=== PATIENT | female | born 1970 | race Caucasian/White ===

== ENCOUNTER 2016-09-04 21:35 | Inpatient (IN) ==
[2016-09-04] MEDS ORDERED: KETOROLAC 30 MG/1 ML VIAL IV STA (22:52)
[2016-09-04] MEDS ORDERED: ALBUTEROL/IPRATROPIUM 3 ML NEB RESP TX STA (22:52)
[2016-09-04] MEDS ORDERED: CEFTAROLINE 600 MG in SODIUM CHLORIDE 0.9% 100 ML IV STA (22:52)
[2016-09-04] MEDS ORDERED: methylPREDNISolone SOD SUC 125 MG/2 ML VIAL IV STA (22:52)
[2016-09-04] MEDS ORDERED: VANCOMYCIN INJ 1,000 MG in SODIUM CHLORIDE 0.9% 250 ML IV STA (22:52)
[2016-09-04 22:54] LABS: Basophils % 0.2 % (0.0-0.8); Eosinophils # 0.5 10*3/uL (0.0-0.87); Eosinophils % 3.7 % (0.00-10.9); Hematocrit 37.6 VOL% (35.7-47.0); Hemoglobin 12.8 GM/DL (12.0-16.0); Immature Granulocytes % 0.5 %; Immature Granulocytes Absolute 0.06 #; Lymphocytes # 2.6 10*3/uL (1.4-4.0); Mean Corpuscular Hemoglobin 32 PG (27-34); Mean Corpuscular Volume 94.9 FL (87-102); Mean Platelet Volume 10.8 FL (9.6-12.0); Monocytes % 7.7 % (1.7-12.7); Neutrophils # 8.2 10*3/uL (1.4-7.4); Neutrophils % 66.9 % (38.7-73.9); Platelet Count 209 T/CUMM (130-400); Red Blood Count 3.96 MC/CUMM (3.8-5.5); Red Cell Distribution Width 12.2 % (9.3-17.3); White Blood Count 12.3 T/CUMM (4-12)
[2016-09-04 23:15] LABS: Alanine Aminotransferase 20 U/L (13-56); Alkaline Phosphatase 79 U/L (45-117); Aspartate Amino Transferase 12 U/L (0-37); Bilirubin,Total < 0.39 MG/DL (0.2-1.0); Blood Urea Nitrogen 18 MG/DL (7-18); Calcium 8.9 MG/DL (8.5-10.1); Glucose 103 MG/DL (74-106); Magnesium 1.8 MG/DL (1.8-2.4); Osmolality,Calculated 280.4 MOS/KG (273-304); Potassium 4.5 MMOL/L (3.5-5.1); Sodium 140 MMOL/L (136-145); Total Protein 6.3 G/DL (6.4-8.3)
--- NOTE | 2016-09-04 23:32 | Emergency Department Note ---
IRonnie Emily, am scribing for, and in the presence of, Cordell Abbasi MD 23: 00. Elroy Alejandro Charles R, MD, personally performed the services described in this documentation, ascribed by Parris Trujillo in my presence, and it is both accurate and complete 332 . Arrival - Arrival Chief Complaint: Extremity Problem Stated Complaint: LAC TO WRIST ED Nursing Triage Note: pt states she was here friday and diagnosed with an infection to left forearm. pt states it has gotten worse and hurts very bad Mode of Arrival: Wheelchair Limitations: No Limitations Source: Patient Time Seen by Provider: 09/04/16 22:00 - History of Present Illness HPI Narrative: Pt is a 45 y/o female who came to ED with c/o laceration that turned to abscess on left forearm that has been ongoing prior to Friday. Pt reports being seen in ED on Friday for same sx with IV abx in ED and sent home with prescription but has not taken them. Pt notes her arm is painful to touch and has worsened. She states the abscess is not draining. Pt reports smoking but denies DM. Onset (ago): day(s) Consistency: constant Severity: moderate Severity scale (1-10): 6 Quality: aching Allergies/Adverse Reactions: Allergies Allergy/AdvReac Type Severity Reaction Status Date / Time pseudoephedrine Allergy RASH Verified 09/02/16 15:56 [From [facility]] Home Medications: Home Medications Medication Instructions Recorded Confirmed Type Albuterol Neb [Proventil Neb] 2.5 mg RESP TX Q8H PRN 02/01/15 09/02/16 History Budesonide/Formoterol 160-4.5 2 puff INH BID 02/01/15 09/02/16 History [Symbicort 160-4.5] Gabapentin Cap/Tab [Neurontin 600 mg PO TID 02/01/15 09/02/16 History Cap/Tab] HYDROcodone/ACETAMIN 10-325 [[place] 1 tablet PO BID 02/01/15 09/02/16 History 10-325] tiZANidine [Zanaflex] 4 mg PO QID 02/01/15 09/02/16 History Ketorolac Tab [Toradol Tab] 10 mg PO Q8H #14 tablet 05/15/17 Rx Levofloxacin Tab [Levaquin Tab] 500 mg PO Q24H #7 tablet 09/02/16 Rx Review of System - Review of System 12 point system: reviewed and no additional remarkable complaints except as stated - Review of System Constitutional: Absent: fever Respiratory: Absent: respiratory distress Cardiovascular: Absent: chest pain, palpitations Gastrointestinal: Absent: abdominal pain, nausea, vomiting Musculoskeletal: Absent: arm pain, back pain, leg pain, neck pain Skin: Present: lesions (left wrist abscess; painful to touch; red and swollen). Absent: rash Neurological: Absent: headache Medical,Surgical,& Family Hx - Medical History Respiratory: History of: Asthma Musculoskeletal: History of: Musculoskeletal Problems (chronic pain) - Surgical History Surgical History: noncontributory - Family History Family History: noncontributory - Social History Smoking Status: Current every day smoker Frequency of Alcohol Use: None Type of Drug Use: None Functional capacity: independent ambulation Exam Vital Signs: Vital Signs Temperature 97.4 F L 09/04/16 21:58 Pulse Rate 107 H 09/04/16 21:58 Respiratory Rate 20 09/04/16 21:58 Blood Pressure 136/96 09/04/16 21:58 O2 Sat by Pulse Oximetry 93 L 09/04/16 21:36 - General General appearance: alert, in no apparent distress - Head Head exam: Present: atraumatic, normocephalic - Eye Eye exam: Present: PERRL, EOMI - ENT ENT exam: Present: mucous membranes moist. Absent: mucous membranes dry - Neck Neck exam: Present: full ROM. Absent: tenderness - Chest Chest inspection: Present: symmetric chest wall rise. Absent: tenderness - Respiratory Respiratory exam: Present: normal lung sounds bilaterally. Absent: respiratory distress - Cardiovascular Cardiovascular exam: Present: regular rate, normal rhythm, normal heart sounds - Extremities Exam Extremities exam: Present: full ROM. Absent: tenderness, pedal edema - Neurological Exam Neurological exam: Present: alert, oriented X3, CN II-XII intact. Absent: motor sensory deficit - Psychiatric Psychiatric exam: Present: normal affect, normal mood - Skin Skin exam: Present: warm, dry, other (8x6 cm abscess to left forearm that's erythematic, tender & hot to the touch and swollen; good radial pulse) Course - Consultations Consultation #1: Dr. Hernandez will admit patient Time: 23:32 Results - Labs CBC & BMP: 09/04/16 22:40 09/04/16 22:40 Lab Results: I have reviewed the patients labs Labs: Laboratory Tests 09/04/16 22:40 WBC 12.3 H Lymph % (Auto) 21.0 L Neut # (Auto) 8.2 H [place] # (Auto) 1.0 H Disposition Clinical Impression: Cellulitis of left forearm, Abscess of left forearm Case discussed with: patient Disposition: Still a Patient Condition: Stable Time of Disposition: 23:32
[2016-09-04] MEDS ORDERED: methylPREDNISolone SOD SUC 125 MG/2 ML VIAL ONE (23:34)
[2016-09-04] MEDS ORDERED: KETOROLAC 30 MG/1 ML VIAL ONE (23:34)
[2016-09-04] MEDS ORDERED: CEFTAROLINE 600 MG VIAL IV ONE (23:35)
[2016-09-04] MEDS ORDERED: SODIUM CHLORIDE 0.9% 100 ML IV ONE (23:35)
[2016-09-05] MEDS ORDERED: VANCOMYCIN 1,000 MG VIAL ONE (00:43)
[2016-09-05] MEDS ORDERED: ACETAMINOPHEN 325 MG TABLET PO PRN (01:17)
[2016-09-05] MEDS ORDERED: ONDANSETRON 4 MG/2 ML VIAL IV PRN ×2 (01:17→10:31)
[2016-09-05] MEDS ORDERED: ALBUTEROL/IPRATROPIUM 3 ML NEB RESP TX PRN (01:17)
[2016-09-05] MEDS: HYDROmorphone 2 MG/1 ML VIAL IV PRN ×8 (02:02→23:13)
[2016-09-05] MEDS: PIPERACILLIN/TAZOBACTAM 3,375 MG in SODIUM CHLORIDE 0.9% 100 ML IV SCH ×3 (02:35→18:07)
[2016-09-05] MEDS: SODIUM CHLORIDE 0.9% 1,000 ML IV SCH ×3 (02:35→17:24)
--- NOTE | 2016-09-05 06:45 | XRay Report ---
Exam: XR chest 1V portable Date: 09/04/2016 10:52 PM Indication: Respiratory preop evaluation of the chest Comparison: 09/03/2015 Findings: Partially calcified nodular densities measuring approximately 9 to 10 mm in the left chest x2 and left perihilar region. Degenerative change present thoracic spine. No obvious infiltrate or effusion. Bony structures reveal no acute findings. Heart is normal in size. Impression: 1. Granuloma changes left midlung zone and perihilar regions without acute pathology. PROCEDURE INTERPRETED AT [facility] ([facility] DEPARTMENT OF RADIOLOGY Final Report Signed by: Dr. Christopher Rivera
[2016-09-05 07:33] LABS: Basophils % 0.1 % (0.0-0.8); Hematocrit 37.7 VOL% (35.7-47.0); Hemoglobin 13.1 GM/DL (12.0-16.0); Immature Granulocytes % 0.5 %; Immature Granulocytes Absolute 0.05 #; Lymphocytes # 0.6 10*3/uL (1.4-4.0); Lymphocytes % 5.9 % (21.3-54.2); Mean Corpuscular HGB Conc 34.7 GM/DL (32-36); Mean Corpuscular Hemoglobin 33 PG (27-34); Mean Corpuscular Volume 95.2 FL (87-102); Mean Platelet Volume 10.8 FL (9.6-12.0); Monocytes # 0.2 10*3/uL (0.11-0.8); Monocytes % 1.7 % (1.7-12.7); Neutrophils # 9.7 10*3/uL (1.4-7.4); Neutrophils % 91.8 % (38.7-73.9); Platelet Count 185 T/CUMM (130-400); Red Blood Count 3.96 MC/CUMM (3.8-5.5); Red Cell Distribution Width 12.1 % (9.3-17.3); White Blood Count 10.6 T/CUMM (4-12)
[2016-09-05 07:52] LABS: Hypochromasia 1+; Lymphocytes 5 % (20-55); Platelet Estimate Normal; Segmented Neutrophils 92 % (50-85); Total Cells Counted 100
--- NOTE | 2016-09-05 07:57 | General Surg History&Physical ---
Assessment and Plan - Time spent with patient Time spent with patient: Greater than 30 minutes (1) Abscess of left forearm Status: Acute Assessment and plan: This is an infected left forearm puncture wound. This has purulence and abscess formation and necrotic tissue. This will need debridement under general anesthesia. She did have an x-ray of her forearm 2 days ago in the emergency department which did not show a foreign body. She is on appropriate antibiotics and her white blood cell count is already coming down. I discussed the procedure and risks in detail and she wishes to proceed today. Current Visit: Yes History of Present Illness Chief complaint: Infection left arm History of present illness: Ms. Harrison is a 45 year old female Who states that she fell in a dark trailer a week ago and something punctured her left arm. She does not know what it is. She states that she pulled it out in the dark and that it was metal. She came to the emergency room several days ago and was treated with antibiotics as an outpatient. She has had increased pain and redness and subjective fever since that time. It is more painful when she moves her arm. It feels better if her arm is elevated. Home Medications Medication Instructions Recorded Confirmed Type Albuterol Neb [Proventil Neb] 2.5 mg RESP TX Q8H PRN 02/01/15 09/05/16 History Budesonide/Formoterol 160-4.5 2 puff INH BID 02/01/15 09/05/16 History [Symbicort 160-4.5] Gabapentin Cap/Tab [Neurontin 900 mg PO TID 02/01/15 09/05/16 History Cap/Tab] tiZANidine [Zanaflex] 4 mg PO QID 02/01/15 09/05/16 History Oxycodone HCl/Acetaminophen 1 each PO TID 09/05/16 09/05/16 History [Percocet 10-325 mg Tablet] Allergies Allergy/AdvReac Type Severity Reaction Status Date / Time pseudoephedrine Allergy RASH Verified 09/02/16 15:56 [From [facility]] Medical,Surgical,& Family Hx - Medical History Respiratory: History of: Asthma, COPD Genitourinary: History of: Kidney Stones Musculoskeletal: History of: Back/Neck Problems (broke neck and back in 3 places ), Musculoskeletal Problems (chronic pain) - Surgical History Orthopedic Surgeries: Surgical HX of;: Orthopedic Surgery (pelvic and left leg surgery x 2), Spinal Surgery - Family History Family History: Reports;: Family Diabetes, Family Heart Disease, Family Hypertension, Additional Family History (father had pneumonia and emphysema) - Social History Smoking Status: Current every day smoker Frequency of Alcohol Use: None Type of Drug Use: None Exam - Constitutional Vitals: Period Temp Pulse Resp BP Sys/Edwards Pulse Ox Last 24 Hr 97.6 F-98.1 F 82-87 18-20 124-126/70-82 91-97 General appearance: no acute distress - Head Head exam: Present: normocephalic - Eye Eye exam: Absent: scleral icterus - ENT Mouth exam: Present: normal voice - Neck Neck exam: Present: trachea midline - Respiratory Respiratory exam: Present: clear to auscultation bilaterally. Absent: accessory muscle use - Cardiovascular Cardiovascular exam: Present: RRR - GI/Abdominal GI/Abdominal exam: Present: soft. Absent: distended, tenderness - Extremities Exam Extremities exam: Present: other (There is about a 5 cm area of erythema along the volar surface of her forearm. It is over the mid forearm. There is a central area of bullous change with purulence beneath it. She has normal movement of her hand and fingers). Absent: edema - Neurological Exam Neurological exam: Present: alert, oriented X3. Absent: motor sensory deficit Speech: Present: normal - Skin Skin exam: Present: normal color - Constitutional Constitutional: Present: chills, fever(s) - Cardiovascular Cardiovascular: Present: dyspnea on exertion. Absent: chest pain at rest, chest pain with activity, dyspnea, syncope - Respiratory Respiratory: Present: dyspnea. Absent: cough, hemoptysis - Gastrointestinal Gastrointestinal: Absent: abdominal pain - Genitourinary Genitourinary: Absent: hematuria - Musculoskeletal Musculoskeletal: Present: back pain - Neurological Neurological: Absent: focal weakness, syncope - Endocrine Endocrine: Absent: polyuria Hematologic/Lymphatic: Absent: easy bleeding, easy bruising Results - Labs CBC & BMP: 09/05/16 07:25 09/04/16 22:40 Lab Results: I have reviewed the past 24 hour labs - Diagnostic Findings Procedure: X-ray: report reviewed by me
[2016-09-05 08:07] LABS: Alanine Aminotransferase 21 U/L (13-56); Alkaline Phosphatase 87 U/L (45-117); Aspartate Amino Transferase 13 U/L (0-37); Bilirubin,Total < 0.39 MG/DL (0.2-1.0); Blood Urea Nitrogen 20 MG/DL (7-18); Calcium 9.3 MG/DL (8.5-10.1); Glucose 169 MG/DL (74-106); Osmolality,Calculated 287.3 MOS/KG (273-304); Potassium 4.4 MMOL/L (3.5-5.1); Sodium 141 MMOL/L (136-145); Total Protein 6.5 G/DL (6.4-8.3)
--- NOTE | 2016-09-05 08:15 | EKG Report ---
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
[2016-09-05] MEDS: PANTOPRAZOLE 40 MG TABLET PO SCH (08:33)
[2016-09-05] MEDS: ENOXAPARIN 40 MG/0.4 ML SYRINGE SUBCUT SCH (08:33)
[2016-09-05] MEDS ORDERED: LIDOCAINE 1%/EPI INJ 20 ML VIAL ONE (08:42)
[2016-09-05] MEDS ORDERED: BUPIVACAINE MPF 0.25% /EPI 30 ML VIAL ONE (08:42)
[2016-09-05] MEDS ORDERED: ONDANSETRON 4 MG/2 ML VIAL ONE ×2 (09:21→10:13)
[2016-09-05] MEDS ORDERED: LIDOCAINE 2% 5 ML VIAL ONE (09:21)
[2016-09-05] MEDS ORDERED: PROPOFOL 200 MG/20 ML VIAL IV ONE (09:21)
--- NOTE | 2016-09-05 10:04 | Operative Note ---
Date of procedure: 09/05/16 Pre-op diagnosis: Necrotizing soft tissue infection left forearm Post-op diagnosis: same Procedure: Excisional debridement of skin and subcutaneous tissue left forearm 4 x 5 cm Findings and technique: After informed consent was obtained the patient was brought the operating room and placed in supine position. After successful induction of general anesthesia the patient's left upper extremity was prepped and draped in usual sterile fashion. The patient had a bullous change of the skin which was draining purulent fluid. This pus was cultured. The skin was debrided away partial-thickness. There was a central area of full-thickness necrosis which communicated with necrotic subcutaneous tissue beneath the skin. I debrided away about 1 x 2 cm of necrotic skin and unroofed the necrotic subcutaneous tissue which was debrided from a space undermined beneath the skin 4 x 5 cm. The remaining tissue appeared viable. This was copiously irrigated and packed open with iodoform gauze. Anesthesia: GETA Surgeon / Physician: Joseluis Hernandez III. Estimated blood loss: minimal Specimens: other (Cultures) Condition: stable Disposition: PACU Results - Labs CBC & BMP: 09/05/16 07:25 09/05/16 07:25 Discharge Plan - Discharge Medications No Action Albuterol Neb [Proventil Neb] 2.5 mg RESP TX Q8H PRN PRN Reason: Shortness Of Breath/Wheezing tiZANidine [Zanaflex] 4 mg PO QID Gabapentin Cap/Tab [Neurontin Cap/Tab] 900 mg PO TID Budesonide/Formoterol 160-4.5 [Symbicort 160-4.5] 2 puff INH BID Oxycodone HCl/Acetaminophen [Percocet 10-325 mg Tablet] 1 each PO TID - Follow Up or Referral - Forms/Instructions
--- NOTE | 2016-09-05 10:08 | Anesthesia Post-Op ---
Anesthesia Post OP - Post Ansesthetic Evaluation Patient seen in post op: Yes Resp: within normal limits CV: within normal limits Mental: within normal limits Temp: within normal limits Ldft-Cy-Ibemlhgmb: within normal limits Nausea and Vomiting: within normal limits Pain: within normal limits
[2016-09-05] MEDS ORDERED: HYDROmorphone 2 MG/1 ML VIAL ONE ×2 (10:12→10:13)
[2016-09-05] MEDS ORDERED: fentaNYL 100 MCG/2 ML VIAL ONE (10:13)
[2016-09-05] MEDS ORDERED: MIDAZOLAM 2 MG/2 ML VIAL ONE ×2 (10:13→11:15)
--- NOTE | 2016-09-05 12:02 | Event Note ---
P/o Check s/p excisional debridement of left forearm for necrotic soft tissue infection. Pt denies chest pain, SOB, wheeze, cough, abdominal pain, N/V. Has not eaten but has appetite - tray arriving at bedside. Pt reports poor control of pain - requesting home med. 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 Ortiz. VSS HEENT: atraumatic Heart: RRR Lungs: CTAB Abd: soft/NTND +BS Lower Ext: SCD in place. Calves soft and nontender without pedal edema. Left forearm: surgical dressing in place - c/d/i. mild edema of hand and distal forearm. AIN, PIN and ulnar motor function intact. Pt reports diminished sensation over all digits. Radial pulse 2+ with BCR digits. A/P Stable p/o. Will change oral pain medication to oxycodone. Encouraged elevation of LUE and digit ROM. Encouraged IS. Diet as tolerated. Continue vanc and zosyn. F/u culture results. DVT ppx: SCD. Lovenox GI ppx: PPI daily.
[2016-09-05] MEDS: tiZANidine 4 MG TABLET PO SCH ×3 (12:45→20:37)
[2016-09-05] MEDS: oxyCODONE/ACETAMINOPHEN 5-325 MG TABLET PO PRN ×3 (13:12→20:37)
[2016-09-05] MEDS: GABAPENTIN 300 MG CAPSULE PO SCH ×2 (15:09→20:37)
[2016-09-05] MEDS: VANCOMYCIN INJ 1,000 MG in SODIUM CHLORIDE 0.9% 250 ML IV SCH (15:33)
[2016-09-05] MEDS: NICOTINE 21 MG/24 HR PATCH TRANSDERM SCH (17:20)
[2016-09-05] MEDS: BUDESONIDE/FORMOTEROL 160-4.5 INHALER 6 GM INH SCH ×2 (23:12→23:13)
[2016-09-06] MEDS: SODIUM CHLORIDE 0.9% 1,000 ML IV SCH ×3 (00:16→23:46)
[2016-09-06] MEDS: VANCOMYCIN INJ 1,000 MG in SODIUM CHLORIDE 0.9% 250 ML IV SCH ×3 (00:28→23:45)
[2016-09-06] MEDS: oxyCODONE/ACETAMINOPHEN 5-325 MG TABLET PO PRN ×5 (00:28→22:54)
[2016-09-06] MEDS: PIPERACILLIN/TAZOBACTAM 3,375 MG in SODIUM CHLORIDE 0.9% 100 ML IV SCH ×3 (02:30→17:12)
[2016-09-06] MEDS: HYDROmorphone 2 MG/1 ML VIAL IV PRN ×3 (07:22→20:49)
[2016-09-06 07:41] LABS: Basophils % 0.3 % (0.0-0.8); Eosinophils # 0.2 10*3/uL (0.0-0.87); Eosinophils % 1.5 % (0.00-10.9); Hematocrit 33.7 VOL% (35.7-47.0); Hemoglobin 11.3 GM/DL (12.0-16.0); Immature Granulocytes % 0.6 %; Immature Granulocytes Absolute 0.07 #; Lymphocytes # 2.7 10*3/uL (1.4-4.0); Mean Corpuscular HGB Conc 33.5 GM/DL (32-36); Mean Corpuscular Hemoglobin 33 PG (27-34); Mean Corpuscular Volume 97.4 FL (87-102); Mean Platelet Volume 11.1 FL (9.6-12.0); Monocytes # 0.9 10*3/uL (0.11-0.8); Monocytes % 7.5 % (1.7-12.7); Neutrophils # 7.8 10*3/uL (1.4-7.4); Neutrophils % 67.1 % (38.7-73.9); Platelet Count 216 T/CUMM (130-400); Red Blood Count 3.46 MC/CUMM (3.8-5.5); Red Cell Distribution Width 12.8 % (9.3-17.3); White Blood Count 11.6 T/CUMM (4-12)
[2016-09-06 08:00] LABS: Calcium 8.4 MG/DL (8.5-10.1); Osmolality,Calculated 288.7 MOS/KG (273-304); Potassium 4.1 MMOL/L (3.5-5.1)
[2016-09-06] MEDS: PANTOPRAZOLE 40 MG TABLET PO SCH (09:09)
[2016-09-06] MEDS: GABAPENTIN 300 MG CAPSULE PO SCH ×3 (09:09→20:49)
[2016-09-06] MEDS: tiZANidine 4 MG TABLET PO SCH ×4 (09:09→20:49)
[2016-09-06] MEDS: ENOXAPARIN 40 MG/0.4 ML SYRINGE SUBCUT SCH (09:09)
[2016-09-06] MEDS: NICOTINE 21 MG/24 HR PATCH TRANSDERM SCH (09:10)
[2016-09-06] MEDS: BUDESONIDE/FORMOTEROL 160-4.5 INHALER 6 GM INH SCH ×2 (09:14→20:49)
--- NOTE | 2016-09-06 10:08 | Event Note ---
General Surgery Progress Note Chief complaint This patient is a 45-year-old woman admitted with necrotizing infection of her left forearm treated by Dr. Hernandez with excisional debridement of necrotizing soft tissue infection on 09/05/2016 Interval history The patient is complaining of a lot of pain and has been a little bit aggressive with the nurses. She has no fevers. Her labs look good today with normal white blood cell count. Physical exam The patient is afebrile with normal vital signs Her left forearm wound still has some significant erythematous blanching extending several centimeters in each direction around her wound but there is no purulence in the wound. There is no further necrotic tissue. The packing was taken out completely. The wound is very tender during the dressing change. Labs Reviewed, as above Imaging None Assessment and plan Continue wound care and antibiotics. We will wait to see resolution of little bit more of the patient's erythema prior to discharging her home and transitioning her to oral antibiotics. Continue pain control
[2016-09-07] MEDS: HYDROmorphone 2 MG/1 ML VIAL IV PRN ×4 (00:59→20:33)
[2016-09-07] MEDS: PIPERACILLIN/TAZOBACTAM 3,375 MG in SODIUM CHLORIDE 0.9% 100 ML IV SCH ×3 (02:20→18:54)
[2016-09-07] MEDS: oxyCODONE/ACETAMINOPHEN 5-325 MG TABLET PO PRN ×3 (06:21→16:32)
[2016-09-07] MEDS: SODIUM CHLORIDE 0.9% 1,000 ML IV SCH (08:42)
[2016-09-07] MEDS: GABAPENTIN 300 MG CAPSULE PO SCH ×3 (08:44→20:33)
[2016-09-07] MEDS: tiZANidine 4 MG TABLET PO SCH ×4 (08:45→20:34)
[2016-09-07] MEDS: PANTOPRAZOLE 40 MG TABLET PO SCH (08:45)
[2016-09-07] MEDS: NICOTINE 21 MG/24 HR PATCH TRANSDERM SCH (08:45)
[2016-09-07] MEDS: ENOXAPARIN 40 MG/0.4 ML SYRINGE SUBCUT SCH (08:45)
[2016-09-07] MEDS: BUDESONIDE/FORMOTEROL 160-4.5 INHALER 6 GM INH SCH ×2 (08:50→20:34)
--- NOTE | 2016-09-07 11:08 | Event Note ---
General Surgery Progress Note Chief complaint This patient is a 45-year-old woman admitted with necrotizing infection of her left forearm treated by Dr. Hernandez with excisional debridement of necrotizing soft tissue infection on 09/05/2016 Interval history No events overnight. Patient is still having issues with pain control. No fevers. Physical exam The patient is afebrile with normal vital signs Left forearm wound has decreased erythema. There is no purulent drainage or necrotic tissue. The wound was dressed today. Labs Reviewed, as above Imaging None Assessment and plan Continue wound care and antibiotics. Hopefully culture reports will come back today and we can discharge the patient on p.o. antibiotics. Otherwise, she should be ready for discharge tomorrow.
[2016-09-07] MEDS: VANCOMYCIN INJ 1,000 MG in SODIUM CHLORIDE 0.9% 250 ML IV SCH (15:20)
[2016-09-08] MEDS: VANCOMYCIN INJ 1,000 MG in SODIUM CHLORIDE 0.9% 250 ML IV SCH (00:38)
[2016-09-08] MEDS: PIPERACILLIN/TAZOBACTAM 3,375 MG in SODIUM CHLORIDE 0.9% 100 ML IV SCH ×2 (02:54→11:51)
[2016-09-08] MEDS: oxyCODONE/ACETAMINOPHEN 5-325 MG TABLET PO PRN (06:21)
--- NOTE | 2016-09-08 09:00 | Discharge Summary ---
Hospital Course - Hospital Course Hospital Course: The patient was admitted for a wound on her left forearm. This responded to debridement and antibiotics with wound care. She was discharged home with gram- positive cocci growing out of her wound and she was discharged on a prescription of Bactrim for 10 days. She was given wound care instructions of pain medicine. She is a chronic pain patient has a contract with someone in [place] so she will call them tomorrow to see what to do about her pain contract. Specialty Discharge - Follow Up or Referrals Discharge Plan - Discharge Data Disposition: Disch To Home/Self Care Condition at Discharge: Stable Discharge Diet: advance to your usual diet Activity: resume usual activities as tolerated Hygiene: may shower Weight Bearing at Discharge: full weight bearing Driving: not until seen by doctor Contact your physician if you experience:: fever over 101, Difficulty voiding, Redness or swelling, Nausea/Vomiting, Shortness of breath, Bleeding, pain uncontrolled by pain medications Wound / Dressing Care Instructions: Clean wound once daily and packed with iodoform gauze and cover with gauze dressing and Kerlix. - Discharge Medications New oxyCODONE/ACETAMINOPHEN 5-325 [Percocet 5-325] 1 tablet PO Q4H PRN #10 tablet PRN Reason: Pain Moderate To Severe (4-10) Continue Albuterol Neb [Proventil Neb] 2.5 mg RESP TX Q8H PRN PRN Reason: Shortness Of Breath/Wheezing tiZANidine [Zanaflex] 4 mg PO QID Gabapentin Cap/Tab [Neurontin Cap/Tab] 900 mg PO TID Budesonide/Formoterol 160-4.5 [Symbicort 160-4.5] 2 puff INH BID Oxycodone HCl/Acetaminophen [Percocet 10-325 mg Tablet] 1 each PO TID - Follow Up or Referral Follow Up: Joseluis Hernandez III., MD [Physician] - 1 Week - Forms/Instructions Instructions: Cellulitis (DC), Debridement (DC) Additional Discharge Instructions: do not take more than 4 grams of tylenol daily with your percocet. Exam - Constitutional Vitals: Period Temp Pulse Resp BP Sys/Edwards Pulse Ox Last 24 Hr 96.1 F-98.6 F 18-94 17-18 97-145/51-82 92-99 General appearance: normal weight, no acute distress - Head Head exam: Present: normal inspection, normocephalic - Eye Eye exam: Present: EOMI Pupils: Present: NOELLE - ENT ENT exam: Present: normal exam - Neck Neck exam: Present: normal inspection - Respiratory Respiratory exam: Present: clear to auscultation bilaterally. Absent: accessory muscle use, chest wall tenderness - Cardiovascular Cardiovascular exam: Present: regular rate and rhythm. Absent: systolic murmur , tachycardia - GI/Abdominal GI/Abdominal exam: Present: soft. Absent: tenderness, rebound - Extremities Exam Extremities exam: Present: other (Decreasing erythema left forearm wound with no further necrotic tissue or pus) - Back Exam Back exam: Present: normal inspection - Neurological Exam Neurological exam: Present: alert, oriented X3 - Psychiatric Psychiatric exam: Present: normal affect, normal mood - Skin Skin exam: Present: normal color, warm Discharge Results Procedures and tests throughout hospitalization: Pending Orders 09/05/16 Abscess Culture Routine Anaerobic Culture Routine Labs on day of discharge: Preliminary micro results at discharge 09/05/16 Unknown Abscess Culture - Preliminary Arm - Left Gram Positive Cocci DS: Provider Date of admission: 09/04/16 23:33 Primary care physician: . No PCP Attending physician on admission: Joseluis Hernandez III., Discharging clinician: Heriberto Piper MD Expected date of discharge: 09/08/16
[2016-09-08] MEDS: NICOTINE 21 MG/24 HR PATCH TRANSDERM SCH (09:35)
[2016-09-08] MEDS: HYDROmorphone 2 MG/1 ML VIAL IV PRN (09:35)
[2016-09-08] MEDS: ENOXAPARIN 40 MG/0.4 ML SYRINGE SUBCUT SCH (09:38)
[2016-09-08] MEDS: PANTOPRAZOLE 40 MG TABLET PO SCH (09:38)
[2016-09-08] MEDS: BUDESONIDE/FORMOTEROL 160-4.5 INHALER 6 GM INH SCH (09:38)
[2016-09-08] MEDS: tiZANidine 4 MG TABLET PO SCH (09:38)
[2016-09-08] MEDS: GABAPENTIN 300 MG CAPSULE PO SCH (09:38)
[2016-09-08 11:47] VITALS: BP 122/76
== END 2016-09-08 12:10 | disposition home or self-care (01) | DRG 264 ==
LOC: N.ED 21:35 → N.EDINP 23:33 → N.3E 09-05 01:02
PROVIDERS: ADMIT Surgery; ATTEND Surgery

== ENCOUNTER 2019-10-25 14:49 | Observation (INO) ==
[2019-10-25] MEDS ORDERED: methylPREDNISolone SOD SUC 125 MG/2 ML VIAL IV STA (18:41)
[2019-10-25] MEDS ORDERED: ONDANSETRON 4 MG/2 ML VIAL IV STA (18:41)
[2019-10-25] MEDS ORDERED: cefTRIAXone 1,000 MG in SODIUM CHLORIDE 0.9% 100 ML IV STA (18:47)
[2019-10-25] MEDS ORDERED: ALBUTEROL NEB SOLN 5 MG/ML 20 ML/BOTTLE CONT NEB SCH (19:00)
[2019-10-25 19:07] LABS: Basophils # 0.1 10*3/uL (0.0-0.2); Basophils % 0.5 % (0.0-0.8); Eosinophils # 1.4 10*3/uL (0.0-0.87); Eosinophils % 11.1 % (0.00-10.9); Hematocrit 46.4 VOL% (35.7-47.0); Hemoglobin 14.6 GM/DL (12.0-16.0); Immature Granulocytes % 0.2 %; Immature Granulocytes Absolute 0.03 #; Lymphocytes # 2.9 10*3/uL (1.4-4.0); Lymphocytes % 23.5 % (21.3-54.2); Mean Corpuscular HGB Conc 31.5 GM/DL (32-36); Mean Corpuscular Volume 98.3 FL (87-102); Mean Platelet Volume 10.3 FL (9.6-12.0); Monocytes % 8.1 % (1.7-12.7); Neutrophils % 56.6 % (38.7-73.9); Platelet Count 241 T/CUMM (130-400); Red Blood Count 4.72 MC/CUMM (3.8-5.5); Red Cell Distribution Width 12.9 % (9.3-17.3); White Blood Count 12.4 T/CUMM (4-12)
[2019-10-25 19:18] LABS: INR 0.9
[2019-10-25 19:25] LABS: Alanine Aminotransferase 25 U/L (13-56); Albumin 3.6 G/DL (3.4-5.0); Alkaline Phosphatase 98 U/L (45-117); Aspartate Amino Transferase 14 U/L (0-37); Bilirubin,Total < 0.39 MG/DL (0.2-1.0); Blood Urea Nitrogen 15 MG/DL (7-18); Calcium 9.7 MG/DL (8.5-10.1); Estimated Glom Filtration Rate 93 ML/MIN; Glucose 65 MG/DL (74-106); Osmolality,Calculated 277.4 MOS/KG (273-304)
[2019-10-25 19:34] LABS: Apearance,Urine CLEAR (Clear); Bilirubin,Urine Negative (Negative); Blood, Urine Negative (Negative); Glucose,Urine (UA) Negative (Negative); Ketones,Urine Negative (Negative); Mucus,Urine Occasional /LPF (Occasional); Nitrite,Urine Negative (Negative); Protein,Urine Negative; RBC,Urine 3 /HPF (0-4); Squamous Epithelial Cell,Urine Occasional /HPF (0-10); Urine Color Yellow (Yellow); Urine Specific Gravity 1.015 (1.001-1.035); Urine Urobilinogen < 2.0 EU/DL (0.2-1.0); WBC,Urine <1 /HPF (0-6)
[2019-10-25] MEDS ORDERED: DEXTROSE 50% 25 GM/50 ML VIAL IV STA (19:44)
[2019-10-25] MEDS ORDERED: DEXTROSE 50% 25 GM/50 ML SYRINGE IV ONE (19:49)
[2019-10-25 20:06] LABS: Eosinophils 8 % (0-10); Hypochromasia 1+; Lymphocytes 25 % (20-55); Macrocytosis 1+; Platelet Estimate Normal; Reactive Lymphocytes 1+; Segmented Neutrophils 65 % (50-85); Total Cells Counted 100
[2019-10-25] MEDS ORDERED: ONDANSETRON 4 MG/2 ML VIAL IV PRN (20:42)
[2019-10-25] MEDS ORDERED: ACETAMINOPHEN 325 MG TABLET PO PRN (20:42)
[2019-10-25] MEDS ORDERED: DEXTROSE 50% 25 GM/50 ML VIAL IV PRN (20:42)
[2019-10-25] MEDS ORDERED: GLUCAGON 1 MG VIAL IM PRN (20:42)
[2019-10-25] MEDS ORDERED: NICOTINE 21 MG/24 HR PATCH TRANSDERM PRN (20:42)
[2019-10-25] MEDS ORDERED: ALBUTEROL 2.5 MG/3 ML NEB RESP TX PRN (22:44)
[2019-10-26] MEDS: ALBUTEROL/IPRATROPIUM 3 ML NEB RESP TX SCH ×4 (00:15→19:49)
[2019-10-26] MEDS: SODIUM CHLORIDE 0.45% 1,000 ML IV SCH ×2 (03:02→07:18)
[2019-10-26] MEDS: methylPREDNISolone SOD SUC 125 MG/2 ML VIAL IV SCH ×2 (03:08→12:11)
[2019-10-26] MEDS ORDERED: PANTOPRAZOLE 40 MG TABLET PO SCH (09:00)
[2019-10-26] MEDS: GABAPENTIN 300 MG CAPSULE PO SCH ×2 (14:46→22:30)
[2019-10-26] MEDS: KETOROLAC 30 MG/1 ML VIAL IV PRN ×2 (16:54→23:47)
[2019-10-26] MEDS ORDERED: cefTRIAXone 1,000 MG in SYRINGE 1 EACH IV SCH (19:00)
[2019-10-26] MEDS ORDERED: methylPREDNISolone SOD SUC 125 MG/2 ML VIAL IV SCH (21:00)
[2019-10-26] MEDS ORDERED: MONTELUKAST 10 MG TABLET PO SCH (21:00)
[2019-10-26] MEDS: methylPREDNISolone SOD SUC 40 MG/1 ML VIAL IV SCH (22:34)
[2019-10-27] MEDS: ALBUTEROL/IPRATROPIUM 3 ML NEB RESP TX SCH ×2 (00:30→06:55)
[2019-10-27] MEDS: methylPREDNISolone SOD SUC 40 MG/1 ML VIAL IV SCH (05:27)
[2019-10-27] MEDS: GABAPENTIN 300 MG CAPSULE PO SCH (08:56)
[2019-10-27] MEDS ORDERED: CHLORHEXIDINE 0.12% ORAL RINSE 60 ML BOTTLE SWISH/SPIT SCH (09:00)
[2019-10-27 11:17] VITALS: BP 147/94
== END 2019-10-27 12:42 | disposition home or self-care (01) ==
LOC: N.EDINP 14:49 → N.ED 14:49 → N.3E 10-26 02:01
PROVIDERS: ADMIT Internal Medicine; ATTEND Internal Medicine